=== PATIENT | male | born 1960 | race American Indian/Alaskan Native ===

== ENCOUNTER 2017-10-04 13:55 | Outpatient (CLI) | payer BC ==
--- NOTE | 2017-10-04 14:51 | Ultrasound Report ---
ULTRASOUND TESTICULAR DOPPLER COMPLETE History: Left testicular/scrotal pain. Technique: Trans-scrotal ultrasound with spectral doppler interrogation. Findings: Both testes and epididymides are normal size, contour and echotexture. No hydrocele or varicocele. No mass or pathologic calcifications. No hernia is visualized on ultrasound. Spectral Doppler waveforms demonstrate symmetric arterial flow to both testes. IMPRESSION: Unremarkable testicular ultrasound.
== END 2017-10-04 13:56 | disposition home or self-care (01) ==
LOC: US 13:55
PROVIDERS: ATTEND Internal Medicine
DX: N50.812 Left testicular pain (principal)
CPT/HCPCS: 93975

== ENCOUNTER 2019-09-25 08:03 | Outpatient (CLI) | payer BC ==
--- NOTE | 2019-09-25 09:17 | XRay Report ---
SKELETAL SURVEY INDICATION: MONOCLONAL GAMMOPATHY. COMPARISON: 06/05/2016 FINDINGS: Skull: No lytic or blastic lesion. C-spine: No lytic or blastic lesion. Humeri: No lytic or blastic lesion. Chest: No lytic or blastic lesion. T-spine: No lytic or blastic lesion. L-spine: No lytic or blastic lesion. Pelvis: No lytic or blastic lesion. Femora: Within the proximal right femoral diaphysis, there is a 1.3 cm lytic/lucent lesion centrally. Subtle lucency is noted here on the prior. The left femur is unremarkable. Additional Findings: None. IMPRESSION: 1. 1.3 cm lytic/lucent lesion within the proximal right femoral diaphysis. There is subtle lucency in this region on the prior exam. 2. No other lytic/lucent foci are seen within the included axial and appendicular skeleton. Signer Name: Omer Bird MD Signed: 09/25/2019 9:13 AM Workstation Name: [id number]
== END 2019-09-25 08:04 | disposition home or self-care (01) ==
LOC: XRAY 08:03
PROVIDERS: ATTEND Internal Medicine
DX: D47.2 Monoclonal gammopathy (principal)
CPT/HCPCS: 77074

== ENCOUNTER 2020-12-30 14:21 | Outpatient (CLI) | payer BC ==
--- NOTE | 2020-12-30 16:12 | XRay Report ---
METASTATIC BONE SURVEY 22 VIEWS INDICATION / CLINICAL INFORMATION: MONOCLONAL GAMMOPATHY. COMPARISON: 10/04/2017 FINDINGS: Single lucent lesion in the proximal right femoral diaphysis is unchanged. Incidentally noted is grade 1 anterolisthesis of L4 on L5, unchanged. No acute abnormalities. Signer Name: Lázaro Charles MD Signed: 12/30/2020 4:08 PM Workstation Name: [id number]
== END 2020-12-30 14:22 | disposition home or self-care (01) ==
LOC: XRAY 14:21
PROVIDERS: ATTEND Internal Medicine Hematology & Oncology
DX: M43.16 Spondylolisthesis, lumbar region (principal); D47.2 Monoclonal gammopathy
CPT/HCPCS: 77074